=== PATIENT | female | born 1965 | race Caucasian/White ===

== ENCOUNTER 2016-06-24 14:57 | Outpatient (CLI) | payer OTHER | END 2016-06-24 14:58 | disposition home or self-care (01) | DX: M19.011 Primary osteoarthritis, right shoulder (principal) ==

== ENCOUNTER 2017-07-03 10:17 | Outpatient (CLI) | payer OTHER ==
--- NOTE | 2017-07-05 18:26 | Mammography Report ---
DIGITAL SCREENING MAMMOGRAM: 07/03/2017 CLINICAL INDICATION: A 52-year-old for screening. COMPARISON: 12/2014, 06/2011, 06/2010, 06/2009. TECHNIQUE: Routine CC and MLO projections were obtained of the breasts. FINDINGS: Parenchymal tissue within both breasts is heterogeneously dense, which may lower the sensitivity of mammography; however, there are no dominant masses, suspicious microcalcifications, or secondary signs of malignancy. In comparison to the previous studies, there are no significant changes. ASSESSMENT: NO MAMMOGRAPHIC EVIDENCE OF MALIGNANCY. NO SIGNIFICANT INTERVAL CHANGES. RECOMMENDATION: Screening mammography is recommended annually. BIRADS category 1 - negative. STANDARD QUALIFYING STATEMENTS: 1. This examination was reviewed with the aid of Computed-Aided Detection (CAD). 2. A negative or benign imaging report should not delay biopsy if clinically suspicious findings are present. Consider surgical consultation if warranted. More than 5% of cancers are not identified by imaging. 3. Dense breasts may obscure an underlying neoplasm. TD: 07/05/2017 18:25
== END 2017-07-03 10:18 | disposition home or self-care (01) ==
LOC: DI.N 10:17
PROVIDERS: ATTEND Physician Assistant
DX: Z12.39 Encounter for other screening for malignant neoplasm of breast (principal)
CPT/HCPCS: 77067

== ENCOUNTER 2020-04-22 08:23 | Outpatient (CLI) | payer OTHER ==
--- NOTE | 2020-04-23 11:45 | Mammography Report ---
BILATERAL DIGITAL SCREENING MAMMOGRAM 3D/2D: 04/22/2020 CLINICAL: Routine screening. Comparison is made to exams dated: 07/03/2017 mammogram and 01/09/2015 mammogram - [facility]. The tissue of both breasts is heterogeneously dense. This may lower the sensitivity of george mography. No significant masses, calcifications, or other findings are seen in either breast. There has been no significant interval change. IMPRESSION: NEGATIVE There is no mammographic evidence of malignancy. A 1 year screening mammogram is recommended. This exam was interpreted at Station ID: [id number]. NOTE: For mammograms, a report in lay terms will be sent to the patient. Approximately 15% of breast malignancies will not be visualized mammographically. In the management of a palpable breast mass, a negative mammogram must not discourage biopsy of a clinically suspicious lesion. Electronically Signed By: Jess pascual/cole:04/22/2020 18:24:16 ACR BI-RADS Category 1: Negative 3341F PARENCHYMAL PATTERN: (D) - The breast(s) demonstrate(s) heterogeneously dense fibroglandular alton de anda. BI-RADS CATEGORY: (1) - 1 RECOMMENDATION: (ANNUAL) - Recommend routine annual screening mammography. [id number] 1 year screening LATERALITY: (B)
== END 2020-04-22 08:24 | disposition home or self-care (01) ==
LOC: DI.N 08:23
DX: Z12.31 Encounter for screening mammogram for malignant neoplasm of breast (principal)
CPT/HCPCS: 77067

== ENCOUNTER 2021-09-30 12:00 | Emergency (ER) | payer BC, OTHER ==
[2021-09-30 12:19] LABS: BASOPHILS # (AUTO) 0.1 10^3/uL (0.0-0.1); BASOPHILS % (AUTO) 0.6 %; EOSINOPHILS % (AUTO) 0.4 %; HCT - HEMATOCRIT 46.5 % (37.0-47.0); HGB - HEMOGLOBIN 15.2 g/dL (12.0-16.0); LYMPHOCYTES # (AUTO) 1.3 10^3/uL (1.5-3.5); LYMPHOCYTES % (AUTO) 12.1 %; MEAN CORPUSCULAR HEMOGLOBIN 31.3 pg (27.0-31.0); MEAN CORPUSCULAR HGB CONC 32.7 g/dL (32.0-36.0); MEAN CORPUSCULAR VOLUME 95.9 fL (81.0-99.0); MEAN PLATELET VOLUME 9.3 fL (7.9-10.8); MONOCYTES # (AUTO) 0.5 10^3/uL (0.0-1.0); MONOCYTES % (AUTO) 4.3 %; NEUTROPHILS # (AUTO) 8.7 10^3/uL (1.5-6.6); NEUTROPHILS % (AUTO) 82.4 %; PLT - PLATELET COUNT 244 10^3/uL (130-450); RED BLOOD COUNT 4.85 10^6/uL (4.20-5.40); RED CELL DISTRIBUTION WIDTH 13.6 % (12.0-15.0); WHITE BLOOD COUNT 10.6 x10^3/uL (4.8-10.8)
[2021-09-30 12:34] LABS: ACETAMINOPHEN < 10 ug/mL (10-30); ALBUMIN 4.9 g/dL (3.2-5.5); ALBUMIN/GLOBULIN RATIO 1.2 (1.0-2.2); ALKALINE PHOSPHATASE 78 IU/L (42-121); ALT ALANINE AMINOTRANSFERASE 27 IU/L (10-60); AST ASPARTATE AMINOTRANSFERASE 31 IU/L (10-42); BILIRUBIN,TOTAL 1.2 mg/dL (0.2-1.0); BUN - BLOOD UREA NITROGEN 13 mg/dL (6-20); CALCIUM 10.3 mg/dL (8.5-10.3); CARBON DIOXIDE - CO2 27 mmol/L (21-32); CHLORIDE 103 mmol/L (101-111); ETOH - ETHANOL 5.4 mg/dL; GFR - MDRD 57 (>89); GLUCOSE 100 mg/dL (70-100); LIPASE 28 U/L (22-51); POTASSIUM 4.1 mmol/L (3.5-5.0); SALICYLATE < 6.0 mg/dL; SODIUM 139 mmol/L (135-145); TOTAL PROTEIN 8.9 g/dL (6.7-8.2)
--- NOTE | 2021-09-30 12:36 | ED Physician Documentation ---
History of Present Illness - Stated complaint Stated Complaint: MED OD - Chief complaint Chief Complaint: MHE - History obtained from History obtained from: Patient, Family - History of Present Illness Timing: Today Pain level max: 0 Pain level now: 0 - Additonal information Additional information: Patient is a 56-year-old female who reportedly took an overdose of Ativan last night. Unknown number of pills. This occurred about 14 hours prior to arrival. Patient is still mildly drowsy. Her states that she had a friend yesterday and had a fight with her daughter last night. Has a history of suicide attempt x2 in the past. Unknown if she has a counselor or therapist. Does take an antidepressant. Unclear which one. Review of Systems Unable to obtain: Uncooperative Ten Systems: 10 systems reviewed and negative Constitutional: denies: Fever, Chills Ears: denies: Ear pain Nose: denies: Rhinorrhea / runny nose, Congestion Throat: denies: Sore throat Respiratory: denies: Cough GI: denies: Abdominal Pain, Nausea, Vomiting, Diarrhea : denies: Dysuria, Frequency, Hesitancy, Now EGA Skin: denies: Rash Musculoskeletal: denies: Neck pain, Back pain Neurologic: denies: Headache PD PAST MEDICAL HISTORY - Past Medical History Past Medical History: Yes Endocrine/Autoimmune: HyPOthyroidism Psych: Depression - Past Surgical History Past Surgical History: Yes 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 - Present Medications Home Medications: Ambulatory Orders Medication Instructions Recorded Confirmed Bupropion HCl [Wellbutrin] 450 02/09/15 02/09/15 LORazepam [Ativan] 1 mg PO Q12H PRN #10 tablet 02/09/15 Levothyroxine [Synthroid] 02/09/15 02/09/15 - Allergies Allergies/Adverse Reactions: Allergies Allergy/AdvReac Type Severity Reaction Status Date / Time Sulfa (Sulfonamide Allergy Unknown Verified 02/09/15 11:24 Antibiotics) - Social History Does the pt smoke?: No Smoking Status: Never smoker Does the pt drink ETOH?: Yes Does the pt have substance abuse?: No PD ED PE NORMAL - Vitals Vital signs reviewed: Yes - General General: Alert and oriented X 3, No acute distress, Well developed/nourished - HEENT HEENT: Atraumatic, PERRL, Moist mucous membranes - Neck Neck: Supple, no meningeal sign - Cardiac Cardiac: RRR - Respiratory Respiratory: No respiratory distress, Clear bilaterally - Abdomen Abdomen: Soft, Non tender, Non distended - Derm Derm: Warm and dry - Extremities Extremities: No edema, No calf tenderness / cord - Neuro Neuro: Alert and oriented X 3 - Psych Psych: Normal mood, Normal affect Results - Vitals Vitals: Vital Signs - 24 hr 09/30/21 09/30/21 09/30/21 12:00 12:16 12:30 Temperature 37.1 C Heart Rate 76 71 79 Respiratory 12 16 16 Rate Blood Pressure 155/104 H 122/77 O2 Saturation 96 97 96 09/30/21 09/30/21 09/30/21 13:00 13:30 14:00 Temperature Heart Rate 78 79 77 Respiratory 16 16 15 Rate Blood Pressure 126/84 H 119/87 H 118/86 H O2 Saturation 96 96 96 09/30/21 09/30/21 09/30/21 14:30 15:00 15:30 Temperature Heart Rate 84 76 69 Respiratory 17 16 16 Rate Blood Pressure 136/94 H 128/101 H 134/96 H O2 Saturation 97 97 97 09/30/21 09/30/21 09/30/21 16:00 16:30 17:00 Temperature Heart Rate 87 84 81 Respiratory 13 15 18 Rate Blood Pressure 146/102 H 147/107 H 155/105 H O2 Saturation 96 96 100 Oxygen O2 Source Room air - EKG (time done) 1225 Rate: Rate (enter#) (74) Rhythm: NSR [place]: Normal Intervals: Normal AR QRS: Normal Ischemia: Normal ST segments - Labs Labs: Laboratory Tests 09/30/21 09/30/21 09/30/21 12:12 12:12 12:12 WBC 10.6 RBC 4.85 Hgb 15.2 Hct 46.5 MCV 95.9 MCH 31.3 H MCHC 32.7 RDW 13.6 Plt Count 244 MPV 9.3 Neut # (Auto) 8.7 H Lymph # (Auto) 1.3 L Nolan # (Auto) 0.5 Eos # (Auto) 0.0 Baso # (Auto) 0.1 Absolute Nucleated RBC 0.00 Nucleated RBC % 0.0 Sodium 139 Potassium 4.1 Chloride 103 Carbon Dioxide 27 Anion Gap 9.0 BUN 13 Creatinine 1.0 Estimated GFR (MDRD) 57 L Glucose 100 Calcium 10.3 Total Bilirubin 1.2 H AST 31 ALT 27 Alkaline Phosphatase 78 Total Protein 8.9 H Albumin 4.9 Globulin 4.0 Albumin/Globulin Ratio 1.2 Lipase 28 TSH 3.63 Nasal Adenovirus (PCR) Nasal B. parapertussis DNA (PCR) Nasal Coronavir 229E PCR Nasal Coronavir HKU1 PCR Nasal Coronavir NL63 PCR Nasal Coronavir OC43 PCR Nasal Enterovir/Rhinovir PCR Nasal Influenza B PCR Nasal Influenza A PCR Nasal Parainfluen 1 PCR Nasal Parainfluen 2 PCR Nasal Parainfluen 3 PCR Nasal Parainfluen 4 PCR Nasal RSV (PCR) Nasal B.pertussis DNA PCR Nasal C.pneumoniae (PCR) Declan Human Metapneumo PCR Nasal M.pneumoniae (PCR) Nasal SARS-CoV-2 (PCR) Salicylates < 6.0 Acetaminophen < 10 L Ethyl Alcohol 5.4 09/30/21 12:25 WBC RBC Hgb Hct MCV MCH MCHC RDW Plt Count MPV Neut # (Auto) Lymph # (Auto) Nolan # (Auto) Eos # (Auto) Baso # (Auto) Absolute Nucleated RBC Nucleated RBC % Sodium Potassium Chloride Carbon Dioxide Anion Gap BUN Creatinine Estimated GFR (MDRD) Glucose Calcium Total Bilirubin AST ALT Alkaline Phosphatase Total Protein Albumin Globulin Albumin/Globulin Ratio Lipase TSH Nasal Adenovirus (PCR) NOT DETECTED Nasal B. parapertussis DNA (PCR) NOT DETECTED Nasal Coronavir 229E PCR NOT DETECTED Nasal Coronavir HKU1 PCR NOT DETECTED Nasal Coronavir NL63 PCR NOT DETECTED Nasal Coronavir OC43 PCR NOT DETECTED Nasal Enterovir/Rhinovir PCR NOT DETECTED Nasal Influenza B PCR NOT DETECTED Nasal Influenza A PCR NOT DETECTED Nasal Parainfluen 1 PCR NOT DETECTED Nasal Parainfluen 2 PCR NOT DETECTED Nasal Parainfluen 3 PCR NOT DETECTED Nasal Parainfluen 4 PCR NOT DETECTED Nasal RSV (PCR) NOT DETECTED Nasal B.pertussis DNA PCR NOT DETECTED Nasal C.pneumoniae (PCR) NOT DETECTED Declan Human Metapneumo PCR NOT DETECTED Nasal M.pneumoniae (PCR) NOT DETECTED Nasal SARS-CoV-2 (PCR) DETECTED A Salicylates Acetaminophen Ethyl Alcohol PD MEDICAL DECISION MAKING - ED course Complexity details: reviewed results, re-evaluated patient, considered differential, d/w patient, d/w family ED course: Patient presents after an intentional overdose. Discussed with poison control and due to length of time since ingestion, the patient is medically clear for psychiatric care. Social work consulted. Social work met with the patient and her family. She tested positive for COVID as well. They are adamant that they do not want to go to a psychiatric facility. The states that he and his daughter can keep her safe at home and would like to try outpatient therapy first. The patient contracts for safety. They were given return precautions and are welcome to return at any time should they change their mind. Patient and family counseled regarding signs and symptoms for which I believe and urgent re-evaluation would be necessary. Patient with good understanding of and agreement to plan and is comfortable going home at this time This document was made in part using voice recognition software. While efforts are made to proofread this document, sound alike and grammatical errors may occur. Departure - Departure Disposition: 01 Home, Self Care Clinical Impression: COVID-19 Intentional overdose Qualifiers: Encounter type: initial encounter Qualified Code(s): T50.902A - Poisoning by unspecified drugs, medicaments and biological substances, intentional self-harm, initial encounter Condition: Good Instructions: ED Depression, ED Overdose Intentional Follow-Up: ZOEY AVILES PA-C [Primary Care Provider] - Within 1 week Comments: You are to keep all of her medication locked up at home. Remove all firearms and potential weapons from the home. Someone is to be at home with her at all times. You have excepted responsibility for keeping her safe. Please follow-up with her doctor and a therapist for further care. Crisis Line and is available to talk to someone [email or web address] is also available to chat with someone online if you prefer. There are also many resources on this website and apps for your phone to help with your mental health You can also text the word START to [phone] to chat with someome via text. Discharge Date/Time: 09/30/21 17:09
[2021-09-30 13:25] LABS: CORONAVIRUS 229E-RESP PCR NOT DETECTED; CORONAVIRUS HKU1-RESP PCR NOT DETECTED; CORONAVIRUS NL63-RESP PCR NOT DETECTED; CORONAVIRUS OC43-RESP PCR NOT DETECTED
[2021-09-30 13:27] LABS: B. PARAPERTUSSIS- RESP PCR PAN NOT DETECTED; B. PERTUSSIS- RESP PCR PANEL NOT DETECTED; C. PNEUMONIAE- RESP PCR PANEL NOT DETECTED; HUMAN METAPNEUMOVIRUS NOT DETECTED; INFLUENZA A- RESP PCR PANEL NOT DETECTED; INFLUENZA B - RESP PCR PANEL NOT DETECTED; M. PNEUMONIAE- RESP PCR PANEL NOT DETECTED; PARAINFLUENZA VIRUS 1 NOT DETECTED; PARAINFLUENZA VIRUS 2 NOT DETECTED; PARAINFLUENZA VIRUS 3 NOT DETECTED; PARAINFLUENZA VIRUS 4 NOT DETECTED; RHINOVIRUS/ENTEROVIRUS NOT DETECTED; RSV- RESP PCR PANEL NOT DETECTED; SARS-CoV-2 -RESP PCR PANEL DETECTED
[2021-09-30 17:05] VITALS: BP 155/105
== END 2021-09-30 17:09 | disposition home or self-care (01) ==
LOC: ED 12:00
DX: T42.4X2A Poisoning by benzodiazepines, intentional self-harm, initial encounter (principal); R40.0 Somnolence; U07.1 COVID-19
CPT/HCPCS: 36415; 80053; 80307; 80320; 80329; 83690; 84443; 85025; 87633; 93005; 99282; 99283

== ENCOUNTER 2022-09-20 09:41 | Outpatient (CLI) | payer BC | END 2022-09-20 09:42 | disposition critical access hospital (66) | LOC: EMS 09:41 | DX: R20.0 Anesthesia of skin (principal); I10 Essential (primary) hypertension; R47.89 Other speech disturbances; R53.83 Other fatigue; M54.2 Cervicalgia | CPT/HCPCS: A0425; A0429 ==

== ENCOUNTER 2022-09-20 10:02 | Emergency (ER) | payer BC ==
[2022-09-20] MEDS ORDERED: SODIUM CHLORIDE 0.9% 1,000 ML IV STA (10:18)
--- NOTE | 2022-09-20 10:19 | ED Physician Documentation ---
PD HPI FOCAL NEURO - Stated complaint Stated Complaint: LT SIDE NUMBNESS - Chief complaint Chief Complaint: Neuro - History obtained from History obtained from: Patient, Family - History of Present Illness Timing - onset: How many hours ago (2), Today Timing - duration: Hours (2) Timing - details: Gradual onset, Still present Severity of deficit: Mild Weakness: No: Face, Arm, Leg Numbness: Face. No: Arm, Leg Associated symptoms: Headache (She has had 1 to 2 weeks of upper neck pain particularly on the left. She has seen the chiropractor 3 times with some improvement on mobility. Still pain in the area. This morning noted numbness of the face left more than right. No other neurologic deficits.) Contributing factors: negative: Anticoagulated, Vascular dz Baseline status: positive: A&OX3, ambulatory, indep Similar symptoms before: Has not had sx before (not the facial numbness) Recently seen: Clinic (She went to the walk-in clinic this morning and was referred to the ER for concern of stroke. 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 - Present Medications Home Medications: Ambulatory Orders Medication Instructions Recorded Confirmed Bupropion HCl [Wellbutrin] 450 mg PO DAILY 02/09/15 02/09/15 LORazepam [Ativan] 1 mg PO Q12H PRN #10 tablet 02/09/15 Levothyroxine [Synthroid] 75 mcg PO DAILY 02/09/15 02/09/15 Meloxicam [Mobic] 7.5 mg PO BID 10 Days #20 tablet 09/20/22 methocarbamoL [Robaxin] 500 mg PO TID PRN #30 tablet 09/20/22 - Allergies Allergies/Adverse Reactions: Allergies Allergy/AdvReac Type Severity Reaction Status Date / Time Sulfa (Sulfonamide Allergy Unknown Verified 02/09/15 11:24 Antibiotics) - Social History Does the pt smoke?: No Smoking Status: Never smoker Does the pt drink ETOH?: Yes Does the pt have substance abuse?: No PD ED PE NORMAL - Vitals Vital signs reviewed: Yes - General General: Alert and oriented X 3, No acute distress, Well developed/nourished - HEENT HEENT: PERRL, EOMI, Ears normal, Moist mucous membranes, Pharynx benign - Neck Neck: Supple, no meningeal sign, No adenopathy, No JVD, No bruit - Cardiac Cardiac: RRR, No murmur - Respiratory Respiratory: Clear bilaterally - Neuro Neuro: Alert and oriented X 3, medical biller/coder 2-12 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, No motor deficit, No sensory deficit, Normal speech, Other Eye Opening: Spontaneous Motor: Obeys Commands Verbal: Oriented GCS Score: 15 NIHSS - Level of Consciousness Level of consciousness: (0) Alert, Keenly responsive LOC Questions: (0) Answers both Q's correct LOC Commands: (0) Performs both correctly - Gaze Best Gaze: (0) Normal - Visual Visual: (0) No loss - Facial Palsy Facial Palsy: (0) Normal, symmetrical movement - Motor Arms (both separate) Motor Arm (right): (0) No drift Motor Arm (left): (0) No drift - Motor Legs (both separate) Motor Leg (right): (0) No drift Motor Leg (left): (0) No drift - Limb Ataxia Limb Ataxia: (0) Absent - Sensory Sensory: (0) Normal - Best Language Best Language: (0) No aphasia - Dysarthria Dysarthria: (0) Normal - Extinction and Inattention (formally neg Extinction and inattention: (0) No abnormality - Total Score/Results Total Score/Result: 0 Results - Vitals Vitals: Vital Signs - 24 hr 09/20/22 09/20/22 09/20/22 10:08 12:24 12:25 Temperature 35.3 C L Heart Rate 75 96 Respiratory 16 16 17 Rate Blood Pressure 153/94 H 140/86 H O2 Saturation 6 L 97 Oxygen O2 Source Room air - Labs Labs: Laboratory Tests 09/20/22 09/20/22 09/20/22 10:27 10:27 10:27 WBC 5.9 RBC 4.51 Hgb 14.2 Hct 43.1 MCV 95.6 MCH 31.5 H MCHC 32.9 RDW 13.2 Plt Count 242 MPV 10.0 Neut # (Auto) 3.9 Lymph # (Auto) 1.4 L [place] # (Auto) 0.5 Eos # (Auto) 0.1 Baso # (Auto) 0.1 Absolute Nucleated RBC 0.00 Nucleated RBC % 0.0 ESR 4 Sodium 141 Potassium 4.0 Chloride 108 Carbon Dioxide 28 Anion Gap 5.0 L BUN 18 Creatinine 0.9 Estimated GFR (MDRD) 65 L Glucose 86 Calcium 9.6 Magnesium 2.1 Total Bilirubin 1.0 AST 20 ALT 18 Alkaline Phosphatase 55 Total Protein 7.3 Albumin 4.1 Globulin 3.2 Albumin/Globulin Ratio 1.3 Lipase 28 - Rads (name of study) brain mri Relevant Findings:: Prelim report reviewed (no acute abnormalities. ), See rad report PD Medical Decision Making - ED course Complexity details: reviewed results, considered differential, d/w patient ED course: The patient has been having upper neck pain particularly on the left. She is seeing chiropractic. She has been trying occasional ibuprofen heat and stretching. She did see the chiropractic yesterday and felt a bit less muscle spasm afterward. This morning she noted onset of a feeling of numbness in her face more on the left but on both sides. She denied any weakness, visual change, trouble speaking, arm or leg symptoms, ataxia or loss of vision. She does have a history of high blood pressure and noted that it was 180 this morning. She was concerned about these and went to the walk-in clinic. She was referred from the walk-in clinic immediately by EMS to the ER for concern of stroke. She states the numbness is dissipating on route here. Still no other focal deficits. Otherwise recent evaluations included being seen at at the clinic last week for her high blood pressure and was started on losartan. No diuretics. Here in the ER, there certainly could be concern for focal effects but given the distribution of bilateral face numbness without weakness and no other deficits, I did not feel there was a major vessel occlusion type of stroke or occlusion. As such a would see more value in an MRI rather than CT or angio. This would provide better information to include things to cause facial numbness along with posterior headache such as mass lesion, MS, vascular abnormalities or small vessel stroke. I did order the brain MRI and this was subsequently done. During this time the patient states her facial symptoms are gone. The MRI did not show any acute abnormalities. In conjunction I also look for other abnormalities to cause facial symptoms or paresthesias to include a sed rate for vasculitis and electrolytes and kidney function. The basic lab tests were normal. I did look up losartan on a drug reference Epocrates and it did list a asthenia as a potential side effect somewhat common. Her facial numbness may therefore just be a side effect to the losartan started 4 days ago. However it was prudent to exclude other more serious causes such as tumors, MS, stroke etc. We will see how her symptoms do. If they persist then they may further start with changing the losartan to another medicine. Regarding the neck pain, we can add in some anti-inflammatories and muscle relaxants and Tylenol if needed. She did not want any opiate type medicines. Departure - Departure Disposition: 01 Home, Self Care Clinical Impression: Neck pain, Facial numbness Condition: Stable Record reviewed to determine appropriate education?: Yes Follow-Up: Colette Solorzano PA [Primary Care Provider] - Prescriptions: Meloxicam [Mobic] 7.5 mg PO BID 10 Days #20 tablet methocarbamoL [Robaxin] 500 mg PO TID PRN #30 tablet PRN Reason: Spasms Comments: Your brain MRI appears normal without any signs of acute abnormality nor because of the headache or facial numbness. In particular no signs of stroke, bleeding, tumors, MS or local inflammation. Your basic blood tests are good to without any indication of electrolyte abnormality or inflammation of the nerves to the face. I did look up your new medication, losartan on a drug reference called Epocrates and abnormal sensation (asthenia) is listed as a uncommon but potential side effect. Given the recent starting of that medication, consideration for the facial numbness could be from that. Its not a common side effect so at this point I would just see how you are symptoms do over the next several days. If there is persistence of the facial numbness or any extension of it, first consideration would be to stop the losartan and see if it improves and potentially change to a different blood pressure medicine. If the numbness is goes away and does not return then no changes indicated. Regarding your neck pain, we can try a combination of some regular anti- inflammatories along with muscle relaxant. To that add Tylenol 650 mg 4 times daily if needed for pains. Continue with massage, stretching, chiropractic as desired. Follow-up with your primary care. I sent your prescriptions to [facility] pharmacy regarding your neck.
[2022-09-20 10:32] LABS: BASOPHILS # (AUTO) 0.1 10^3/uL (0.0-0.1); BASOPHILS % (AUTO) 0.8 %; EOSINOPHILS # (AUTO) 0.1 10^3/uL (0.0-0.7); EOSINOPHILS % (AUTO) 1.4 %; HCT - HEMATOCRIT 43.1 % (37.0-47.0); HGB - HEMOGLOBIN 14.2 g/dL (12.0-16.0); LYMPHOCYTES # (AUTO) 1.4 10^3/uL (1.5-3.5); LYMPHOCYTES % (AUTO) 23.1 %; MEAN CORPUSCULAR HEMOGLOBIN 31.5 pg (27.0-31.0); MEAN CORPUSCULAR HGB CONC 32.9 g/dL (32.0-36.0); MEAN CORPUSCULAR VOLUME 95.6 fL (81.0-99.0); MONOCYTES # (AUTO) 0.5 10^3/uL (0.0-1.0); MONOCYTES % (AUTO) 9.1 %; NEUTROPHILS # (AUTO) 3.9 10^3/uL (1.5-6.6); NEUTROPHILS % (AUTO) 65.4 %; PLT - PLATELET COUNT 242 10^3/uL (130-450); RED BLOOD COUNT 4.51 10^6/uL (4.20-5.40); RED CELL DISTRIBUTION WIDTH 13.2 % (12.0-15.0); WHITE BLOOD COUNT 5.9 x10^3/uL (4.8-10.8)
[2022-09-20 10:52] LABS: ALBUMIN 4.1 g/dL (3.2-5.5); ALBUMIN/GLOBULIN RATIO 1.3 (1.0-2.2); CALCIUM 9.6 mg/dL (8.5-10.3); CREATININE 0.9 mg/dL (0.4-1.0); MAGNESIUM 2.1 mg/dL (1.7-2.8); TOTAL PROTEIN 7.3 g/dL (6.7-8.2)
--- NOTE | 2022-09-20 12:08 | MRI Report ---
PROCEDURE: BRAIN WO INDICATIONS: occipital pain and facial numbness TECHNIQUE: Noncontrast axial T1 spin echo, axial T2 fast spin echo, sagittal and axial FLAIR, coronal T2 fast sp in echo, axial gradient echo, axial diffusion and ADC through the brain. COMPARISON: None. FINDINGS: Image quality: Excellent. CSF Spaces: Basal cisterns are patent. No extra-axial fluid collections. Ventricles are normal in size and shape. Brain: No intracranial masses or hemorrhage. Cadena/white matter interface is normal. Brainstem appe ars normal. Diffusion-weighted images demonstrate no acute ischemic insult. No chronic ischemic ins ults. Normal intravascular flow voids are present. Skull and face: Calvarium has normal marrow signal. Orbits appear normal. Sinuses: Sinuses and mastoids are clear. IMPRESSION: 1. No acute process. No recent infarct. 2. No explanation for occipital pain and facial numbness. Reviewed by: Arsh Bethea MD on 09/20/2022 11:07 AM YASSINE Approved by: Arsh Bethea MD on 09/20/2022 11:07 AM YASSINE Station ID: [id number]
[2022-09-20 12:30] VITALS: BP 140/86
[2022-09-20] MEDS ORDERED: KETOROLAC 15 MG/ML VIAL IVP STA (12:32)
[2022-09-20] MEDS ORDERED: methocarbamoL 500 MG TABLET PO STA (12:34)
== END 2022-09-20 12:51 | disposition home or self-care (01) ==
LOC: EDUNIT# → ED 10:02
DX: M54.2 Cervicalgia (principal); R20.0 Anesthesia of skin
CPT/HCPCS: 36415; 70551; 80053; 83690; 83735; 85025; 85651; 96374; 99284; A9270

== ENCOUNTER 2022-10-31 08:32 | Outpatient (CLI) | payer BC ==
[2022-10-31 12:24] LABS: BASOPHILS % (AUTO) 0.6 %; EOSINOPHILS # (AUTO) 0.1 10^3/uL (0.0-0.7); EOSINOPHILS % (AUTO) 1.6 %; HCT - HEMATOCRIT 43.6 % (37.0-47.0); HGB - HEMOGLOBIN 13.9 g/dL (12.0-16.0); LYMPHOCYTES # (AUTO) 1.5 10^3/uL (1.5-3.5); LYMPHOCYTES % (AUTO) 22.2 %; MEAN CORPUSCULAR HEMOGLOBIN 31.2 pg (27.0-31.0); MEAN CORPUSCULAR HGB CONC 31.9 g/dL (32.0-36.0); MEAN CORPUSCULAR VOLUME 97.8 fL (81.0-99.0); MEAN PLATELET VOLUME 9.8 fL (7.9-10.8); MONOCYTES # (AUTO) 0.6 10^3/uL (0.0-1.0); MONOCYTES % (AUTO) 9.1 %; NEUTROPHILS # (AUTO) 4.5 10^3/uL (1.5-6.6); NEUTROPHILS % (AUTO) 66.2 %; PLT - PLATELET COUNT 300 10^3/uL (130-450); RED BLOOD COUNT 4.46 10^6/uL (4.20-5.40); RED CELL DISTRIBUTION WIDTH 13.4 % (12.0-15.0); WHITE BLOOD COUNT 6.7 x10^3/uL (4.8-10.8)
[2022-10-31 12:47] LABS: ALKALINE PHOSPHATASE 75 IU/L (42-121); ALT ALANINE AMINOTRANSFERASE 22 IU/L (10-60); AST ASPARTATE AMINOTRANSFERASE 25 IU/L (10-42); BILIRUBIN,TOTAL 0.6 mg/dL (0.2-1.0); BUN - BLOOD UREA NITROGEN 17 mg/dL (6-20); CARBON DIOXIDE - CO2 27 mmol/L (21-32); CHLORIDE 105 mmol/L (101-111); CHOL/HDL RATIO 3.3 (<4.4); CHOLESTEROL 196 mg/dL; CREATININE 0.9 mg/dL (0.4-1.0); GFR - MDRD 65 (>89); GLUCOSE 90 mg/dL (70-100); HDL CHOLESTEROL 59 mg/dL; LDL CHOLESTEROL,CALCULATED 115 mg/dL; LDL/HDL RATIO 1.9 (<4.4); POTASSIUM 4.7 mmol/L (3.5-5.0); SODIUM 137 mmol/L (135-145); TRIGLYCERIDES 108 mg/dL; VLDL CHOLESTEROL 22 mg/dL
[2022-10-31 12:55] LABS: THYROID STIMULATING HORMONE 5.92 uIU/mL (0.34-5.60)
[2022-10-31 12:56] LABS: FREE T3 3.01 pg/mL (2.5-3.9)
[2022-10-31 12:57] LABS: FREE T4 (FREE THYROXINE) 0.86 ng/dL (0.58-1.64)
== END 2022-10-31 08:33 | disposition home or self-care (01) ==
LOC: LAB.N 08:32
PROVIDERS: ATTEND Physician Assistant
DX: E03.9 Hypothyroidism, unspecified (principal); Z13.220 Encounter for screening for lipoid disorders
CPT/HCPCS: 36415; 80053; 80061; 83721; 84439; 84443; 84481; 85025

== ENCOUNTER 2022-11-02 08:00 | Outpatient (CLI) | payer BC | END 2022-11-02 23:59 | disposition home or self-care (01) | LOC: LAB.N 08:00 | PROVIDERS: ATTEND Physician Assistant Medical | DX: M70.22 Olecranon bursitis, left elbow (principal) | CPT/HCPCS: 87070; 87181; 87205 ==

== ENCOUNTER 2022-11-22 08:10 | Outpatient (CLI) | payer BC ==
--- NOTE | 2022-11-23 09:24 | Mammography Report ---
BILATERAL DIGITAL SCREENING MAMMOGRAM 3D/2D: 11/22/2022 CLINICAL: Routine screening. Comparison is made to exams dated: 04/22/2020 mammogram, 07/03/2017 mammogram, 01/09/2015 mammogram, mammogram, 07/12/2010 mammogram, and 06/19/2009 mammogram - [facility]. Both breasts are heterogeneously dense, which may obscure small masses (category c / 51-75% glandular tissue). No significant masses, calcifications, or other findings are seen in either breast. There has been no significant interval change. IMPRESSION: NEGATIVE There is no mammographic evidence of malignancy. A 1 year screening mammogram is recommended. Based on the Tyrer Cuzick model (a risk assessment model) the patients lifetime risk is 9.0% and her 10 year risk is 3.1%. According to the ACR, ACS, and NCCN guidelines, an annual breast MRI exam rian g with mammogram is recommended if the patients lifetime risk is 20% or greater. This exam was interpreted at Station ID: [id number]. NOTE: For mammograms, a report in lay terms will be sent to the patient. Approximately 15% of breast malignancies will not be visualized mammographically. In the management of a palpable breast mass, a negative mammogram must not discourage biopsy of a clinically suspicious lesion. Electronically Signed By: Jess pascual/cole:11/22/2022 14:50:32 letter sent: No_Letter ACR BI-RADS Category 1: Negative 3341F PARENCHYMAL PATTERN: (D) - The breast(s) demonstrate(s) heterogeneously dense fibroglandular alton de anda. BI-RADS CATEGORY: (1) - 1 Mammogram [id number] 1 year screening LATERALITY: (B)
== END 2022-11-22 08:11 | disposition home or self-care (01) ==
LOC: DI.N 08:10
DX: Z12.31 Encounter for screening mammogram for malignant neoplasm of breast (principal)

== ENCOUNTER 2023-07-25 09:15 | Outpatient (CLI) | payer BC, OTHER | END 2023-07-25 09:30 | disposition home or self-care (01) | LOC: LAB.N 09:15 | PROVIDERS: ATTEND Family Medicine | DX: R30.0 Dysuria (principal) | CPT/HCPCS: 87086 ==

== ENCOUNTER 2023-08-01 08:00 | Outpatient (CLI) | payer OTHER ==
[2023-08-01 18:11] LABS: BILIRUBIN,URINE NEGATIVE (NEGATIVE); GLUCOSE, URINE (UA) NEGATIVE (NEGATIVE); KETONES,URINE (UA) NEGATIVE (NEGATIVE); LEUKOCYTE ESTERASE, URINE MODERATE (NEGATIVE); NITRITE,URINE NEGATIVE (NEGATIVE); OCCULT BLOOD,URINE SMALL (NEGATIVE); PROTEIN,URINE NEGATIVE (NEGATIVE); UROBILINOGEN,URINE 0.2 (NORMAL) E.U./dL (NORMAL)
[2023-08-01 18:12] LABS: CLARITY,URINE HAZY (CLEAR)
[2023-08-01 18:25] LABS: BACTERIA,URINE Moderate /HPF (None Seen); RBC,URINE 0-5 /HPF (0-5); SQUAMOUS EPITHELIAL CELL,UR FEW Squamous (<= Few); WBC CLUMPS,URINE PRESENT; WBC,URINE >25 /HPF (0-5)
== END 2023-08-01 23:59 | disposition home or self-care (01) ==
LOC: LAB.N 08:00
PROVIDERS: ATTEND Nurse Practitioner Family
DX: R30.0 Dysuria (principal)
CPT/HCPCS: 81001; 87086; 87181

== ENCOUNTER 2023-10-31 07:34 | Outpatient (CLI) | payer OTHER ==
[2023-10-31 12:12] LABS: BASOPHILS % (AUTO) 0.5 %; EOSINOPHILS # (AUTO) 0.2 10^3/uL (0.0-0.7); HCT - HEMATOCRIT 43.8 % (37.0-47.0); LYMPHOCYTES # (AUTO) 1.6 10^3/uL (1.5-3.5); LYMPHOCYTES % (AUTO) 28.3 %; MEAN CORPUSCULAR HEMOGLOBIN 31.3 pg (27.0-31.0); MEAN PLATELET VOLUME 10.1 fL (7.9-10.8); MONOCYTES # (AUTO) 0.7 10^3/uL (0.0-1.0); MONOCYTES % (AUTO) 11.9 %; NEUTROPHILS # (AUTO) 3.2 10^3/uL (1.5-6.6); NEUTROPHILS % (AUTO) 56.1 %; PLT - PLATELET COUNT 238 10^3/uL (130-450); RED BLOOD COUNT 4.47 10^6/uL (4.20-5.40); RED CELL DISTRIBUTION WIDTH 12.9 % (12.0-15.0); WHITE BLOOD COUNT 5.6 x10^3/uL (4.8-10.8)
[2023-10-31 12:24] LABS: ALBUMIN 4.5 g/dL (3.2-5.5); ALBUMIN/GLOBULIN RATIO 1.6 (1.0-2.2); BILIRUBIN,TOTAL 0.9 mg/dL (0.2-1.0); CALCIUM 10.2 mg/dL (8.5-10.3); POTASSIUM 4.4 mmol/L (3.5-4.5); TOTAL PROTEIN 7.3 g/dL (6.4-8.9)
[2023-10-31 12:41] LABS: THYROID STIMULATING HORMONE 5.57 uIU/mL (0.34-5.60)
== END 2023-10-31 07:35 | disposition home or self-care (01) ==
LOC: LAB.N 07:34
PROVIDERS: ATTEND Nurse Practitioner Family
DX: I10 Essential (primary) hypertension (principal); E03.9 Hypothyroidism, unspecified
CPT/HCPCS: 36415; 80053; 84443; 85025

== ENCOUNTER 2023-12-27 07:12 | Outpatient (CLI) | payer OTHER ==
[2023-12-27 12:42] LABS: THYROID STIMULATING HORMONE 2.89 uIU/mL (0.34-5.60)
== END 2023-12-27 07:13 | disposition home or self-care (01) ==
LOC: LAB.N 07:12
PROVIDERS: ATTEND Nurse Practitioner Family
DX: E03.9 Hypothyroidism, unspecified (principal); R30.0 Dysuria
CPT/HCPCS: 36415; 81001; 84439; 84443; 87086

== ENCOUNTER 2023-12-27 07:15 | Outpatient (CLI) | payer OTHER ==
--- NOTE | 2023-12-28 08:27 | Mammography Report ---
BILATERAL DIGITAL SCREENING MAMMOGRAM 3D/2D: 12/27/2023 CLINICAL: Routine screening. Comparison is made to exams dated: 11/22/2022 mammogram, 04/22/2020 mammogram, and 07/03/2017 mammogram - [facility]. Both breasts are heterogeneously dense, which may obscure small masses (category c / 51-75% glandular tissue). No significant masses, calcifications, or other findings are seen in either breast. There has been no significant interval change. IMPRESSION: NEGATIVE There is no mammographic evidence of malignancy. A 1 year screening mammogram is recommended. Based on the Tyrer Cuzick model (a risk assessment model) the patient's lifetime risk is 8.9% and her 10 year risk is 3.3%. According to the ACR, ACS, and NCCN guidelines, an annual breast MRI exam rian g with mammogram is recommended if the patient's lifetime risk is 20% or greater. This exam was interpreted at Station ID: [id number]. NOTE: For mammograms, a report in lay terms will be sent to the patient. Approximately 15% of breast malignancies will not be visualized mammographically. In the management of a palpable breast mass, a negative mammogram must not discourage biopsy of a clinically suspicious lesion. Electronically Signed By: Dwaine tirado/cole:12/27/2023 15:04:35 letter sent: No_Letter ACR BI-RADS Category 1: Negative 3341F PARENCHYMAL PATTERN: (D) - The breast(s) demonstrate(s) heterogeneously dense fibroglandular alton de anda. BI-RADS CATEGORY: (1) - 1 RECOMMENDATION: (ANNUAL) - Recommend routine annual screening mammography. [id number] 1 year screening LATERALITY: (B)
== END 2023-12-27 07:16 | disposition home or self-care (01) ==
LOC: DI.N 07:15
DX: Z12.31 Encounter for screening mammogram for malignant neoplasm of breast (principal); R92.333 Mammographic heterogeneous density, bilateral breasts